=== PATIENT | female | born 1965 | race Caucasian/White ===

== ENCOUNTER 2018-08-09 00:05 | Inpatient (IN) ==
[2018-08-09] MEDS ORDERED: ASPIRIN PO ONE (00:58)
[2018-08-09 01:43] LABS: INR 1.42; PROTIME 18.5 Seconds (11.0-16.0)
[2018-08-09 01:44] LABS: PTT 39.8 Seconds (22.3-41.8)
[2018-08-09 01:54] LABS: AGAP 13; ALB/GLOB RATIO 0.9; ALBUMIN 3.6 g/dL (3.5-5.0); ALKALINE PHOSPHATASE 138 U/L (32-104); BUN 5 mg/dL (8-22); CALCIUM 9.4 mg/dL (8.8-10.2); CHLORIDE 109 mmol/L (98-107); CK PROFILE 124 U/L (24-173); COSMO 281; CREATININE 0.4 mg/dL (0.5-0.9); ESTIMATED GFR > 60; GLUCOSE 104 mg/dL (70-104); GOT 29 U/L (10-30); GPT 13 U/L (10-36); POTASSIUM 3.5 mmol/L (3.5-5.1); SODIUM 142 mmol/L (136-145); TCO2 20 mmol/L (25-35); TOTAL BILIRUBIN 1.46 mg/dL (0.20-1.00); TOTAL PROTEIN 7.8 g/dL (6.3-8.3)
[2018-08-09 02:21] LABS: BASO# 0.03 X1000 (0.0-0.2); BASO% 0.7 % (0.0-0.8); EOS# 0.15 X1000 (0.0-0.7); EOS% 3.7 % (0.0-10.0); HEMATOCRIT 23.4 % (37.0-47.0); HEMOGLOBIN 6.5 g/dL (12.0-16.0); LYMPH# 1.97 X1000 (1.2-3.4); MCH 17.5 PG (27-31); MCHC 27.8 g/dL (33-37); MCV 63.1 FL (81-99); MONO# 0.35 X1000 (0.11-0.59); MONO% 8.5 % (1.7-9.3); NEUT% 39.1 % (42.2-75.2); PLT 93 X1000 (130-400); RBC 3.71 XMIL (4.2-5.4); RDW 25.6 % (11.5-14.5)
[2018-08-09] MEDS ORDERED: NS 1,000 ML IV ONE (02:52)
[2018-08-09 03:41] LABS: IRON SATURATION 2 %; TIBC 388 ug/dL
[2018-08-09 03:49] LABS: TOTAL IRON 9 ug/dL (49-151); UNBOUND IRON 379 ug/dL (112-346)
--- NOTE | 2018-08-09 03:53 | PROVIDER DOCUMENTATION ---
This chart was entered by Niurka Harris Scribe, acting as scribe for Asia Izquierdo MD. HPI-General Adult - General Chief Complaint: Shortness of Breath Stated Complaint: SOB Time Seen by Provider: 08/09/18 00:40 Source: patient Allergies/Adverse Reactions: Patient Allergies Allergy/AdvReac Type Severity Reaction Status Date / Time No Known Allergies Allergy Verified 08/09/18 01:28 Home Medications: Home Medication List Medication Instructions Recorded Confirmed Last Taken Type NK [No Home Medications] 08/09/18 08/09/18 Unknown History - History of Present Illness -Gen Adult Nature of Presenting Problems: Pt is 53/F presenting to ED w/ SOB, cough, hoarseness and sts that she passed out tonight around 10:45. Her caught her. Pt sts that she has had no voice for the past several months and that she has not felt normal in a few months. She sts that she has a hx of asthma. She is a current everyday smoker, saying that she has cut down from 2 packs to only a few cigarettes per day. Location of Pain/Injury: reports: generalized Pain Radiation: reports: no radiation Quality of Pain: reports: none Severity: reports: moderate Onset/Duration: reports: other (4 months) Timing: reports: still present Context/Activities at Onset: reports: none Modifying Factors: improves with: nothing Associated Symptoms: reports: constipation, shortness of breath. denies: chest pain, nausea, vomiting, weakness Similar Symptoms Previously?: Yes Recently seen or treated by another doctor?: No Review of Systems - Adult - REVIEW OF SYSTEMS - ADULT Constitutional: reports: no symptoms reported Eyes: reports: no symptoms reported Ears, Nose, Mouth & Throat: reports: no symptoms reported Cardiovascular: reports: no symptoms reported. denies: chest pain, edema Respiratory: reports: cough, shortness of breath. denies: wheezing Gastrointestinal: reports: no symptoms reported. denies: abdominal pain, diarrhea, nausea, vomiting Genitourinary: reports: no symptoms reported Musculoskeletal: reports: no symptoms reported Integumentary: reports: no symptoms reported Neurological: reports: dizziness/vertigo Psychiatric: reports: no symptoms reported Endocrine: reports: no symptoms reported Hematologic/Lymphatic: reports: no symptoms reported Allergic/Immunologic: reports: no symptoms reported All Other Systems: Reviewed and Negative Past History - Adult - PAST MEDICAL HISTORY-ADULT Review of Records: reports: Old Records Reviewed, Nursing Assessment Review, Medications Reviewed, Social history reviewed & non-contributory. - SOCIAL HISTORY Smoking: cigarettes Provider spent 3-5 mins advising pt. on dangers of tobacco.: Discussed manners to quit use, and f/u contacts for add'l counseling. Substance Use: none/never Alcohol Use Frequency: 5-6 times a week Number of drinks per typical drinking period:: 3-4 drinks Living Situation: family Physical Exam-General - PHYSICAL EXAM-ADULT Initial Vital Signs Reviewed: Yes - CONSTITUTIONAL General Appearance: appears well, alert, no apparent distress - EYES Eyes: PERRL/EOMI - HEAD, EARS, NOSE, MOUTH & THROAT HENMT: normal ENT inspection, TMs normal, pharynx normal, other (Pt is very hoarse during exam) - NECK Neck: non-tender, full range of motion, supple - RESPIRATORY Respiratory: chest non-tender, lungs clear, normal breath sounds - CARDIOVASCULAR Cardiovascular: regular rate, rhythm - GASTROINTESTINAL (ABDOMEN) Abdominal Exam: normal bowel sounds, non tender, soft - LYMPHATIC Lymphatic: no adenopathy - MUSCULOSKELETAL Back Exam: normal inspection, no CVA tenderness, no vertebral tenderness Extremity: normal range of motion, non-tender, normal gait - SKIN Integumentary: normal color, normal turgor, warm/dry - NEUROLOGIC Neurologic: grossly normal - PSYCHIATRIC Psych/Mental Status: normal mood/affect, normal thought content, normal thought process, oriented x 3 Progress - PLAN OF CARE/RESULTS Progress/Plan/Lab Results: Vital Signs - 8 hr 08/09/18 00:12 Temperature 98.3 F Pulse Rate 75 Respiratory Rate 18 Blood Pressure 139/72 O2 Sat by Pulse Oximetry 100 Orders Category Date Time Status Cardiac Monitoring DIRECTED Care 08/09/18 00:58 Active Oxygen Therapy- ED Nursing DIRECTED Care 08/09/18 00:58 Active Saline Loc NOW Care 08/09/18 00:58 Active CHEST-2 VIEWS [RAD] Stat Exams 08/09/18 00:58 Ordered CBC WITH ELECTRONIC DIFF [HEME] Stat Lab 08/09/18 00:58 Uncollected CK PROFILE [SP CHEM] Stat Lab 08/09/18 00:58 Uncollected COMPREHENSIVE METABOLIC PANEL [CHEM] Stat Lab 08/09/18 00:58 Uncollected PRO B-NATRIURETIC PEPTIDE Stat Lab 08/09/18 00:58 Uncollected PROTIME WITH INR [COAG] Stat Lab 08/09/18 00:58 Uncollected PTT [COAG] Stat Lab 08/09/18 00:58 Uncollected TROPONIN T Stat Lab 08/09/18 00:58 Uncollected Aspirin Med 08/09/18 00:58 Discontinued 325 mg PO NOW ONE CP/SOB/Palp >45 yrs of Age Stat Oth 08/09/18 00:58 Ordered EKG [EKG] Stat Ther 08/09/18 00:58 Ordered Result Diagrams: 08/09/18 00:25 08/09/18 00:25 - EKG 1 Time of EKG reading by physician:: 00:21 EKG Read and Signed by:: Asia Izquierdo EKG Interpretation (*Must complete 3 of following elements*): Abnormal (normal sinus rhythm, Left posterior fascicular blockm Possible Inferior infarct, age undetermined, Abnormal ECG) Rate: 82 Rhythm: Normal Sinus - CT/MRI 1 CT Study: Head Impression: See EMR Report CT Results: mild nonspecific periventricular deep white matter disease - CONSULTS/PCP/HOSPITALIST Notification #1 *Consult/PCP/Hospitalist*: Dr Chand Time Discussed: 03:53 (accepted for admission ) Departure - Departure Date of Disposition Decision: 08/09/18 Time of Disposition Decision: 03:38 DIAGNOSIS: Symptomatic anemia, Iron deficiency anemia Disposition: ADMITTED INPATIENT 09 Certified Medical Emergency: Emergent Condition: Fair Referrals and Follow-Ups: Elsy Carson CRNP [Primary Care Provider] - - Critical Care Note This patient required my direct & personal management of CC.: No Attestation - Physician/ CHEN Attestation Patient care was provided by Advanced Practice Provider:: No The physician spent face to face time with patient:: Yes Advanced Practice Provider documentation review:: Supervising physician onsite and consulted in the evaluation and care of this patient. The physician did have a face to face encounter with the patient. This chart was documented by the indicated scribe, (Niurka Harris Scribe) and accurately reflects the services I performed and decisions made by me, Asia Izquierdo MD, as attested by the provider's signature.
[2018-08-09] MEDS ORDERED: POTASSIUM CHLORIDE 20% LIQUID PO ONE (04:37)
[2018-08-09 05:11] LABS: FREE T4 0.77 ng/dL (0.93-1.70)
[2018-08-09 05:14] LABS: TSH 5.81 uIUmL (0.27-4.20)
[2018-08-09] MEDS ORDERED: ZOFRAN IV PRN (05:19)
[2018-08-09] MEDS ORDERED: TYLENOL PO PRN (05:19)
--- NOTE | 2018-08-09 05:23 | HISTORY AND PHYSICAL ---
CHIEF COMPLAINT: Shortness of breath. HISTORY OF PRESENT ILLNESS: This is a 53-year-old female who looks much older than her stated age. She has a complaint of shortness of breath, cough, hoarseness and states that she passed out around 10:45 tonight. Apparently, her caught her. The states that she did not hit her head or the ground. She apparently was not out for very long. They were unable to tell us how long she felt she had been passed out. She has a history of asthma, iron deficiency anemia and hypothyroidism. She does not take any home medications stating that she has not had insurance. She apparently is an everyday smoker, however. She has cut down below 1 pack of cigarettes per day. They have also been using their fireplace a lot so she states that she has inhaled some of the smoke from that, but apparently she has been chronically hoarse over the last 4 months with increasing shortness of breath. As noted, she does have a history of iron deficiency anemia and has not been treating it. She also reportedly drinks a few times a week 3 or [address] showed mild nonspecific periventricular deep tissue matter. She was found to have symptomatic anemia with a hemoglobin and hematocrit of 6.5 and 23.4. She will be admitted to the medical floor for further evaluation and treatment. PAST MEDICAL HISTORY: See HPI. PREVIOUS SURGICAL HISTORY: Denies. SOCIAL HISTORY: Lives at home with her . Smokes less than a pack a day. However, she has been a 1 pack per day smoker for many years. She does drink a few times a week. She stated 3-4 drinks at a time. Denies illicit drug use. She does not work. FAMILY HISTORY: Positive for colon cancer and coronary artery disease. ALLERGIES: No known drug allergies. HOME MEDICATIONS: No home medications. REVIEW OF SYSTEMS: Fourteen point review of systems conducted with the patient. Pertinent positives listed above in the HPI. All other systems reviewed and found to be negative. PHYSICAL EXAMINATION: VITAL SIGNS: Temperature 98.3, pulse 75, respirations 18, blood pressure 139/72 , oxygen saturation 100% on room air. GENERAL: A 53-year-old female looks much older than her stated age on the ER stretcher, answers all questions appropriately. She is alert and oriented times 3. She is hoarse when speaking. HEENT: Head is atraumatic, normocephalic. Pupils equal, round, reactive to light. Extraocular eye movement is intact. Sclerae are anicteric. Conjunctiva is pale. Oral mucosa is dry. NECK: Supple. No JVD. No thyromegaly. Trachea is midline. No cervical lymphadenopathy. CARDIAC: S1, S2 appreciated. No murmurs, gallops, or rubs. LUNGS: Decreased bilaterally. Prolonged expiratory phase. No rhonchi, wheezes , rales. Symmetric rise and fall with respirations. ABDOMEN: Soft, nondistended, nontender. Bowel sounds present all 4 quadrants, normoactive. No pulsatile mass. No organomegaly. EXTREMITIES: No clubbing, cyanosis, or edema. Two-plus pedal pulses bilaterally. GENITOURINARY: No bladder distention. Patient voids. Otherwise deferred. NEUROLOGICAL: Alert and oriented times 3. Cranial nerves II through XII grossly intact. SKIN: Warm, dry and intact. Mildly pale. No acute lesions are noted. DIAGNOSTIC DATA: Chest x-ray shows chronic COPD changes. CT of the head shows mild nonspecific periventricular deep white matter disease. LABORATORY DATA: WBC 4.10. Hemoglobin 6.5. Hematocrit 23.4. Platelet count 93. PT 18.5. INR 1.42. Sodium 142. Potassium 3.5. Chloride 109. Carbon dioxide 20. BUN 5. Creatinine 0.4. Glucose 104. Ferritin 10. Iron 9. Unsaturated iron binding 379. ASSESSMENT AND PLAN: 1. Iron deficiency anemia. She is symptomatic at this time. We will give 2 units of packed red blood cells and defer to primary team iron therapy. She will likely need to go home on this. 2. Hypothyroidism. Check TSH level, free T4. Again, we will not start Synthroid at this time but the patient will likely need to go home on medication for this. Her symptoms such as hoarseness could be related to her untreated hypothyroidism. 3. Tobacco use. Smoking cessation was gone over with the patient. She states that she has cut back and will try to quit. 4. Alcohol abuse. Alcohol cessation was gone over with the patient. She did not want to quit at this time. States that she only drinks occasionally. The patient was counseled on the need to have a colonoscopy related to her colon cancer as well as iron deficiency anemia. She stated over and over how she did not have insurance. This should be stressed before discharge. Further recommendations per patient clinical course. Dictated by RODRIGO Cowan for [place] Chand MD cc: RODRIGO Cowan MD This patient was examined by me at bedside with ASSURANCE SOURCING MANAGER. She definitely had a syncopal spell likely secondary to depleted intravascular volume from chronic blood loss manifesting as iron deficiency anemia. I do also believe that she may have poorly controlled hypothyroidism which could explain some of her symptoms. Agree with transfusion and anemia work up in this patient. Her exam was notable for findings above including pallor ,but no goiter . She did have some mild xerosis. H/H will need to be followed the next day and if there other hematinic deficiencies these will have to be addressed. MTDD
--- NOTE | 2018-08-09 06:00 | Diag Imaging Result Doc PS360 ---
EXAM: CHEST-1 VIEW HISTORY: sob TECHNIQUE: Chest single view COMPARISON: 10/20/2013 FINDINGS: The lungs are well expanded. The heart is not enlarged. The vessels are not distended. There are no infiltrates. No effusion identified. IMPRESSION: Negative exam. Electronically signed by Calixto Zhou 08/09/2018 5:57 AM
--- NOTE | 2018-08-09 06:58 | Diag Imaging Result Doc PS360 ---
EXAM: CT HEAD W/O CONTRAST 08/09/2018 HISTORY: syncope TECHNIQUE: This exam was performed using automated exposure control, adjustment of mA or kV according to patient size, and/or use of iterative reconstruction technique. COMMENT: There is no evidence of mass effect, bleed, or abnormal extra-axial fluid collection. There are no previous studies. The visualized paranasal sinuses are largely clear. There is a small mucous retention cyst in the left maxillary sinus. IMPRESSION: No evidence of acute intracranial disease. Electronically signed by Benitez Omer 08/09/2018 6:56 AM
--- NOTE | 2018-08-09 07:28 | EKG Report ---
Test Performed on : 08/09/2018 00:21:18 AM Test Reason : SOB with syncope Blood Pressure : / mmHG Vent. Rate : 082 BPM Atrial Rate : 082 BPM P-R Int : 130 ms QRS Dur : 084 ms QT Int : 386 ms P-R-T Axes : 000 145 -23 degrees QTc Int : 450 ms Normal sinus rhythm. Left posterior fascicular block Possible Inferior infarct , age undetermined Abnormal ECG No previous ECGs available Unconfirmed Result
[2018-08-09] MEDS ORDERED: NS 500 ML ONE (07:57)
[2018-08-09] MEDS ORDERED: BLISTEX MEDICATED BERRY LIP BALM TOP ONE (09:49)
[2018-08-09 14:38] LABS: HEMATOCRIT 27.8 % (37.0-47.0)
[2018-08-09] MEDS ORDERED: VENOFER 500 MG in NS 250 ML IV ONE (15:27)
--- NOTE | 2018-08-09 17:49 | Diag Imaging Result Doc PS360 ---
EXAM: CT THORAX/ABD/PELVIS W/WO CON 08/09/2018 HISTORY: anemia, very heavier smoker, suspected lung Ca TECHNIQUE: This exam was performed using automated exposure control, adjustment of mA or kV according to patient size, and/or use of iterative reconstruction technique. COMMENT: Thorax: There are no previous studies available for comparison. There are no abnormal fluid collections. There is no evidence of significant adenopathy. There are coronary calcifications. The regional skeleton is intact. There are some interstitial opacities in the lateral costophrenic sulcus of the right lower lobe and also posterior medially in the costophrenic sulcus. This may represent mild atelectasis or fibrosis. No evidence of acute pulmonary parenchymal disease is present. ABDOMEN: The liver is slightly heterogeneous in contrast enhancement and nodular in contour consistent with cirrhosis. The gallbladder is not distended. The spleen is at the upper limits of normal in size. There is some slight increase in density in the fat surrounding the pancreatic head which may indicate mild interstitial pancreatitis. There are small nonspecific appearing gastrohepatic ligament nodes. The aorta is distended to a maximum AP diameter of 3.1 cm below the level of the renal arteries. The portal vein is patent. There are varices connecting the portal system to the pelvic veins. There is no evidence of bowel obstruction. The kidneys are without evidence of hydronephrosis. There is a cyst laterally in the left kidney. Pelvis: There is a small amount of ascites in the pelvis dependently. The urinary bladder is not distended. There are no masses. There is no evidence of acute bony abnormality. IMPRESSION: 1. Cirrhosis with mild ascites and varices as described. 2. Possible mild interstitial pancreatitis. Electronically signed by Benitez Omer 08/09/2018 5:46 PM
--- NOTE | 2018-08-09 18:04 | Diag Imaging Result Doc PS360 ---
EXAM: US SOFT TISSUE HEAD/NECK 08/09/2018 HISTORY: anemia, TSH elevated TECHNIQUE: Thyroid ultrasound COMMENT: The thyroid gland is slightly inhomogeneous. The right lobe is 4.7 x 1.1 x 1.1 cm the left is 4.2 x 1.1 x 1.1 cm. There are multiple subcentimeter cysts bilaterally more so on the left than the right. There are no previous studies. IMPRESSION: Multinodular gland. Electronically signed by Benitez Omer 08/09/2018 6:01 PM
[2018-08-10 07:20] LABS: INR 1.6; PROTIME 20.3 Seconds (11.0-16.0)
[2018-08-10 07:36] LABS: BASO# 0.03 X1000 (0.0-0.2); EOS% 3.3 % (0.0-10.0); HEMATOCRIT 28.9 % (37.0-47.0); HEMOGLOBIN 8.7 g/dL (12.0-16.0); LYMPH# 1.06 X1000 (1.2-3.4); LYMPH% 35.1 % (20.5-51.1); MCH 20.5 PG (27-31); MCHC 30.1 g/dL (33-37); MCV 68.2 FL (81-99); MONO# 0.39 X1000 (0.11-0.59); MONO% 12.9 % (1.7-9.3); NEUT# 1.44 X1000 (1.4-6.5); NEUT% 47.7 % (42.2-75.2); PLT 59 X1000 (130-400); RBC 4.24 XMIL (4.2-5.4); RDW 27.8 % (11.5-14.5); WBC 3.02 X1000 (4.8-10.8)
[2018-08-10 07:41] LABS: AGAP 10; BUN 5 mg/dL (8-22); CALCIUM 9.3 mg/dL (8.8-10.2); CHLORIDE 107 mmol/L (98-107); COSMO 273; CREATININE 0.4 mg/dL (0.5-0.9); ESTIMATED GFR > 60; GLUCOSE 105 mg/dL (70-104); MAGNESIUM 1.6 mg/dL (1.5-2.7); POTASSIUM 3.7 mmol/L (3.5-5.1); SODIUM 138 mmol/L (136-145); TCO2 21 mmol/L (25-35)
[2018-08-10 07:53] LABS: BANDS 4 % (0-1); LYMPHS 38 % (21-51); MONO 12 % (1-9); SEGS 46 % (42-75)
[2018-08-10 07:55] LABS: ANISOCYTOSIS 2+; HYPOCHROM 2+; MICROCYTOSIS 2+; POIKILOCYTOSIS 1+
[2018-08-10 07:56] LABS: TARGET CELLS 1+
[2018-08-10 08:35] VITALS: BP 143/76
--- NOTE | 2018-08-10 14:36 | DISCHARGE SUMMARY ---
ADMISSION DATE: 08/09/2018 DISCHARGE DATE: 08/10/2018 DISCHARGE DIAGNOSES: 1. Iron deficiency anemia, resolved. 2. Newly diagnosed liver cirrhosis with ascites. 3. Hypothyroidism. 4. Tobacco abuse. 5. Alcohol abuse. CONSULTATIONS: None. PROCEDURES: Chest x-ray done on admission was negative. Chest, abdomen and pelvis CT showed cirrhosis with mild ascites and varices described and possible mild interstitial pancreatitis. Head and neck ultrasound showed multinodular gland. HOSPITAL COURSE: This is a 53-year-old female who looks much older than her stated age, who presented to the emergency department complaining of shortness of breath, cough, hoarseness. She reports that she was feeling weak the last few weeks. She was brought to the emergency department. She was found to have anemia of 6.5. There were no signs of GI bleeding. She denies any signs of bleeding, hematemesis or black stools. She was transfused 2 units of blood. She was feeling fine. The next day, the day of discharge, she reported that she was feeling fine, so she wanted to be discharged home. I talked to her to see if she prefers to stay here for workup for this newly found cirrhosis and workup of anemia by GI, but she prefers outpatient. She is going to be referred back to her primary care physician, in this case, Elsy WALLACE. I informed about the finding on the ultrasound of the neck of multinodular goiter, and the patient will see her primary care provider to have her referred to oil plant operator. The patient is being discharged in stable condition. She agreed to have some labs for further study of cirrhosis before she leaves. Apparently she drinks socially, 1 to 2 cans of beers, but she is not able to tell me for how long. At this point, she is going to be discharged in stable condition. DISCHARGE PHYSICAL EXAMINATION: VITAL SIGNS: Temperature is 98.3, heart rate 83, respiratory rate 18, blood pressure 143/76, O2 saturation is 100% on room air. GENERAL: This is a 53-year-old female looking older than her stated age, lying in bed, in no acute distress. HEENT: Head and normocephalic and atraumatic. NECK: No JVD. No carotid bruit, no lymphadenopathy. No thyromegaly. CARDIOVASCULAR: S1 and S2 heard. No murmurs, gallops or rubs. Regular rate and rhythm. RESPIRATORY: Clear bilaterally to auscultation. There are some decreased breath sounds in both bases. The patient is not using any accessory muscles or having work of breathing. ABDOMEN: Soft, nontender to palpation. Bowel sounds present. No organomegaly. EXTREMITIES: No clubbing, cyanosis or edema. Peripheral pulses are present in both legs. NEUROLOGICAL: The patient is alert and oriented x3. Moves all 4 extremities. DISCHARGE DISPOSITION: Home to self care. MEDICATIONS: Icar-C 1 tablet p.o. daily. FOLLOWUP: 1. Dr. Mccann of GI for further evaluation of cirrhosis as a new patient evaluation. 2. Primary care provider, RODRIGO Lemus, in a week. cc: Stephen Yañez MD
[2018-08-12 10:43] LABS: HEPATITIS PROFILE ACUTE SEE COMMENTS
== END 2018-08-10 13:09 | disposition home or self-care (01) | DRG 812 ==
LOC: ED 00:05 → EDIPHOLD 00:05 → OBSVTOIN 07:31 → SUATTDRO 07:31 → 3N 13:50
PROVIDERS: ATTEND Internal Medicine
CPT/HCPCS: 36430; 70450; 71010; 71045; 71270; 74178; 76536; 80048; 80053; 80074; 82390; 82550; 82607; 82728; 82746; 82977; 83540; 83550; 83735; 83880; 84439; 84443; 84481; 84484; 85014; 85018; 85025; 85610; 85730; 86038; 86039; 86850; 86900; 86901; 86920; 99285; A9270; J1756; J7030; J7040; J7050; P9016; Q9967